=== PATIENT | male | born 1965 | race Caucasian/White ===

== ENCOUNTER → 2020-11-20 | Outpatient (CLI) | payer BC, OTHER ==
[2020-11-20 11:56] LABS: BASO # 0.1 10*3/uL (0.0-0.1); BASO % 0.9 % (0.0-1.0); EOS # 0.2 10*3/uL (0.0-0.4); EOS % 3.1 % (1.0-4.0); HEMATOCRIT 46.8 % (42.0-52.0); LYMPH # 1.8 10*3/uL (1.3-4.4); LYMPH % 30.4 % (27.0-41.0); MEAN CELL VOLUME 91.9 fl (80.0-94.0); MEAN CORPUSCULAR HGB 32.2 pg (27.0-31.0); MEAN PLATELET VOLUME 9.3 fl (9.6-12.3); MONO # 0.6 10*3/uL (0.1-1.0); MONO % 9.6 % (3.0-9.0); NEUT # 3.3 10*3/uL (2.3-7.9); NEUT % 55.7 % (47.0-73.0); PLATELET COUNT AUTOMATED 270 10*3/uL (130-400); RED BLOOD COUNT 5.09 10*6/uL (4.50-5.90); RED CELL DISTRI WIDTH 12.6 % (0-14.5); WHITE BLOOD COUNT 5.8 10*3/uL (4.8-10.8)
[2020-11-20 12:21] LABS: ALBUMIN 4.3 gm/dl (3.1-4.5); BUN 14 mg/dl (7-24); CHLORIDE 106 mmol/L (98-107); CHOLESTEROL 210 mg/dL (<200); CREATININE 1.33 mg/dL (0.70-1.30); SGOT/AST 21 IU/L (3-35); SGPT/ALT 50 U/L (12-78); SODIUM 139 mmol/L (136-145); TRIGLYCERIDES 182 mg/dl (<150); VLDL CHOLESTEROL 36 mg/dL (6-40)
[2020-11-20 12:23] LABS: ALKALINE PHOSPHATASE 69 U/L (45-117); HDL CHOLESTEROL 39 mg/dl (40-60); LDL CHOLESTEROL 135 mg/dL (9-159); TOTAL PROTEIN 7.8 gm/dL (6.4-8.2)
[2020-11-20 12:26] LABS: FREE T4 1.03 ng/dl (0.76-1.46)
[2020-11-20 13:33] LABS: VITAMIN D, 25-HYDROXY 26.7 ng/mL (30-100)
== END | disposition home or self-care (01) ==
LOC: LAB 11:31
PROVIDERS: ATTEND Internal Medicine
DX: Z12.5 Encounter for screening for malignant neoplasm of prostate (principal); Z00.00 Encounter for general adult medical examination without abnormal findings; E78.5 Hyperlipidemia, unspecified; E11.9 Type 2 diabetes mellitus without complications; E55.9 Vitamin D deficiency, unspecified; D52.9 Folate deficiency anemia, unspecified; R53.81 Other malaise; E03.9 Hypothyroidism, unspecified; R79.89 Other specified abnormal findings of blood chemistry

== ENCOUNTER → 2025-03-14 | Outpatient (CLI) | payer BC, OTHER | LOC: US 07:18 | PROVIDERS: ATTEND Internal Medicine | DX: K42.9 Umbilical hernia without obstruction or gangrene (principal) ==